=== PATIENT | male | born 1990 | race Caucasian/White ===

== ENCOUNTER 2018-08-12 11:21 | Emergency (ER) | payer MEDICAID ==
[~2018-08-12] VITALS: Ht 175.3 cm; Wt 113.4 kg
[2018-08-12 11:33] VITALS: BP 146/93
[2018-08-12] MEDS ORDERED: ALBUTEROL SULF 2.5 MG/0.5ML(0.5%) NEB SOLN NEB ONE (12:45)
[2018-08-12] MEDS ORDERED: IPRATROPIUM BROM 0.5 MG/2.5ML INH SOL NEB ONE (12:45)
[2018-08-12] MEDS ORDERED: diphenhdrAMINE HCL 50 MG/1 ML VL IM ONE (12:45)
== END 2018-08-12 13:29 | disposition home or self-care (01) ==
LOC: ER 11:21
DX: J45.901 Unspecified asthma with (acute) exacerbation (principal); F41.9 Anxiety disorder, unspecified
CPT/HCPCS: 71046; 93005; 94640; 96372; 99283; J1200; J7611; J7644